=== PATIENT | female | born 1945 | race Caucasian/White ===

== ENCOUNTER → 2018-07-07 11:53 | Outpatient (CLI) | payer MEDICARE ==
[2012-08-04 09:32] VITALS: BMI 43.5
[2018-07-07 12:50] LABS: BASOPHILS 0.2 % (0-2); EOSINOPHILS 1.7 % (0-7); HEMOGLOBIN 11.3 g/dL (12-16); IMMATURE GRANULOCYTES 0.2 % (0-5); LYMPHOCYTES 22.9 % (15-50); MCH 32.3 pg (26.0-34.0); MCHC 32.3 g/dL (31.0-37.0); MEAN PLATELET VOLUME 10.6 fL (7.4-10.4); MONOCYTES 8.1 % (2-11); NEUTROPHILS 66.9 % (40-80); PLATELET COUNT 225 10x3/uL (130-400); RDW 12.5 % (11.5-14.5); WBC 4.1 10x3/uL (4.8-10.8)
[2018-07-07 12:57] LABS: ANION GAP 12.9 mmol/L (8-16); CALCIUM 8.7 mg/dL (8.5-10.1); CARBON DIOXIDE 28.3 mmol/L (21.0-32.0); MAGNESIUM - SERUM 1.9 mg/dL (1.8-2.4); POTASSIUM - SERUM 4.2 mmol/L (3.5-5.1)
[2018-07-07 13:47] LABS: APPEARANCE HAZY (CLEAR); BILIRUBIN NEGATIVE (NEGATIVE); COLOR YELLOW (YELLOW); GLUCOSE NEGATIVE (NEGATIVE); KETONE NEGATIVE (NEGATIVE); NITRITE NEGATIVE (NEGATIVE); PROTEIN NEGATIVE (NEGATIVE); SPECIFIC GRAVITY 1.015 (1.005-1.020); UROBILINOGEN NORMAL (NORMAL)
[2018-07-07 13:52] LABS: CREATININE - URINE 72.7 mg/dL (30-125); PRO/CRE RATIO URINE 0.1 mg/g; PROTEIN - URINE 6.9 mg/dL (0.0-11.9)
[2018-07-07 13:55] LABS: BACTERIA MODERATE /hpf (NONE SEEN); EPITHELIAL CELLS 0-5 /hpf (0-5); RED CELLS - URINE RARE /hpf (0-5); WHITE CELLS - URINE 0-5 /hpf (0-5)
== END | disposition home or self-care (01) ==
LOC: D.US 07-04 14:00
PROVIDERS: Family Medicine
DX: N18.4 Chronic kidney disease, stage 4 (severe) (principal)

== ENCOUNTER 2018-10-24 20:17 | Inpatient (IN) | payer MEDICARE ==
[~2018-10-24] VITALS: Ht 170.2 cm; Wt 115.7 kg
[2018-10-24] MEDS ORDERED: TRAZODONE HCL150 MG (20:31)
[2018-10-24] MEDS ORDERED: LYRICA50 MG (20:31)
[2018-10-24 21:55] LABS: ALBUMIN 2.7 g/dL (3.4-5.0); ALKALINE PHOSPHATASE 41 U/L (46-116); ALT (SGPT) 22 U/L (10-68); CALC OSMOLALITY 285 mosm/kg (275-300); CALCIUM 7.9 mg/dL (8.5-10.1); CHLORIDE - SERUM 107 mmol/L (98-107); CREATININE - SERUM 1.1 mg/dL (0.6-1.3); GLUCOSE 119 mg/dL (74-106); POTASSIUM - SERUM 4.2 mmol/L (3.5-5.1); PROTEIN - SERUM 6.1 g/dL (6.4-8.2); SODIUM 139 mmol/L (136-145); UREA NITROGEN 32 mg/dL (7-18); eGFR NON AFRICAN AMERICAN 52 mL/min (90-120)
[2018-10-24 21:56] LABS: BASOPHILS 0.2 % (0-2); EOSINOPHILS 2.8 % (0-7); HEMATOCRIT 25.4 % (36.0-48.0); IMMATURE GRANULOCYTES 0.2 % (0-5); LYMPHOCYTES 29.8 % (15-50); MCH 32.8 pg (26.0-34.0); MCHC 31.5 g/dL (31.0-37.0); MCV 104.1 fL (80.0-100.0); MEAN PLATELET VOLUME 11.3 fL (7.4-10.4); MONOCYTES 12.1 % (2-11); NEUTROPHILS 54.9 % (40-80); PLATELET COUNT 205 10x3/uL (130-400); RBC 2.44 10x6/uL (4.00-5.40); RDW 13.1 % (11.5-14.5); WBC 5.1 10x3/uL (4.8-10.8)
[2018-10-24 21:59] LABS: AMYLASE - SERUM 16 U/L (25-115); LIPASE 51 U/L (73-393); TROPONIN-I < 0.017 ng/mL (0.000-0.060)
[2018-10-24 22:22] VITALS: BP 105/45
[2018-10-24 23:24] VITALS: BP 99/46
[2018-10-24 23:42] LABS: % SATURATION 10 % (15-55); IRON 33 ug/dl (35-150); TOTAL IRON BIND CAPACITY 322 ug/dl (260-445); UNSAT IRON BIND CAPACITY 289 ug/dl (150-375)
[2018-10-24 23:43] LABS: APPEARANCE CLEAR (CLEAR); BILIRUBIN NEGATIVE (NEGATIVE); COLOR YELLOW (YELLOW); GLUCOSE NEGATIVE (NEGATIVE); KETONE NEGATIVE (NEGATIVE); NITRITE NEGATIVE (NEGATIVE); PROTEIN NEGATIVE (NEGATIVE); SPECIFIC GRAVITY 1.015 (1.005-1.020); UROBILINOGEN NORMAL (NORMAL)
[2018-10-25] VITALS (30 sets, daily range): BP systolic 92–119; BP diastolic 52–89; Ht 170.2 cm; Wt 115.7 kg
[2018-10-25] MEDS ORDERED: PRAVACHOL20 MG (00:40)
[2018-10-25] MEDS ORDERED: LIPOFEN50 MG (00:41)
[2018-10-25] MEDS ORDERED: TENORMIN25 MG (00:41)
[2018-10-25] MEDS ORDERED: CYMBALTA20 MG (00:41)
[2018-10-25] MEDS ORDERED: [UNRECOGNIZED DRUG - OTHER] (00:41)
[2018-10-25] MEDS ORDERED: BENICAR5 MG (00:41)
[2018-10-25 05:50] LABS: BASOPHILS 0 % (0-2); EOSINOPHILS 3.2 % (0-7); HEMATOCRIT 23.3 % (36.0-48.0); MCH 31.1 pg (26.0-34.0); MCHC 31.8 g/dL (31.0-37.0); MEAN PLATELET VOLUME 10.9 fL (7.4-10.4); MONOCYTES 14.2 % (2-11); NEUTROPHILS 46.6 % (40-80); RBC 2.38 10x6/uL (4.00-5.40); RDW 17.7 % (11.5-14.5)
[2018-10-25 06:21] LABS: WBC 2.5 10x3/uL (4.8-10.8)
[2018-10-25 06:22] LABS: HEMOGLOBIN 7.4 g/dL (12-16); MCV 97.9 fL (80.0-100.0); PLATELET COUNT 133 10x3/uL (130-400)
[2018-10-25 06:28] LABS: CALCIUM 7.1 mg/dL (8.5-10.1); CARBON DIOXIDE 22.3 mmol/L (21.0-32.0); CREATININE - SERUM 0.9 mg/dL (0.6-1.3)
[2018-10-25 07:09] LABS: ANION GAP 11.4 mmol/L (8-16); POTASSIUM - SERUM 3.7 mmol/L (3.5-5.1)
[2018-10-25 17:50] LABS: HEMATOCRIT 30.2 % (36.0-48.0); HEMOGLOBIN 9.7 g/dL (12-16)
[2018-10-25 21:07] LABS: HEMATOCRIT 29.7 % (36.0-48.0); HEMOGLOBIN 9.7 g/dL (12-16)
[2018-10-26] VITALS (19 sets, daily range): BP systolic 103–130; BP diastolic 58–75
[2018-10-26 04:58] LABS: HEMATOCRIT 29.9 % (36.0-48.0); HEMOGLOBIN 9.4 g/dL (12-16); MCH 28.4 pg (26.0-34.0); MCHC 31.4 g/dL (31.0-37.0); MEAN PLATELET VOLUME 10.7 fL (7.4-10.4); PLATELET COUNT 125 10x3/uL (130-400); RDW 23.8 % (11.5-14.5); WBC 2.6 10x3/uL (4.8-10.8)
[2018-10-26 05:04] LABS: CALC OSMOLALITY 280 mosm/kg (275-300); CARBON DIOXIDE 23.6 mmol/L (21.0-32.0); CHLORIDE - SERUM 110 mmol/L (98-107); CREATININE - SERUM 0.7 mg/dL (0.6-1.3); GLUCOSE 85 mg/dL (74-106); POTASSIUM - SERUM 3.5 mmol/L (3.5-5.1); SODIUM 141 mmol/L (136-145); eGFR NON AFRICAN AMERICAN 87 mL/min (90-120)
[2018-10-26 05:23] LABS: MCV 90.3 fL (80.0-100.0); RBC 3.31 10x6/uL (4.00-5.40)
[2018-10-26 05:26] LABS: UREA NITROGEN 16 mg/dL (7-18)
[2018-10-26 08:06] LABS: EOSINOPHILS 2 % (0-7); LYMPHOCYTES 30 % (15-50); MONOCYTES 14 % (2-11); NEUTROPHILS 49 % (40-80); PLATELET ESTIMATE NORMAL
[2018-10-26 09:17] LABS: FOLATE (FOLIC ACID) - SERUM 9.2 ng/mL (>3.0)
[2018-10-26 10:11] LABS: HEMATOCRIT 31.4 % (36.0-48.0)
--- NOTE | 2018-10-26 16:24 | MORECARE ---
CASE MANAGEMENT DISCHARGE SUMMARY PATIENT: MEEK DEVLIN UNIT: [id number] ADM DATE: 10/24/18 AGE: 73 : 47 SEX: F ROOM/BED: D.2303 AUTHOR: ZACHERY PINEDA PHYSICIAN: REFERRING PHYSICIAN: THALIA SILVA MD DATE OF SERVICE: 10/26/18 Discharge Plan Patient Name: MEEK DEVLIN [facility] : 1945 Planned Disposition: Home Anticipated Discharge Date: Discharge Date: Expected LOS: Initial Reviewer: [email or web address] Initial Review Date: 10/25/2018 Generated: 10/26/18 5:23 pm DCPIA - Discharge Planning Initial Assessment Updated by [email or web address]: Debbie Shaffer on 10/26/18 4:23 pm * Is the patient Alert and Oriented? Yes * How many steps to enter\exit or inside your home? * PCP [facility] * [facility] * Preadmission Environment Home with Family * ADLs Partial Dependent * Other Equipment W/C, BSC, HOSPITAL BED, HOME 02 @ HS * List name and contact numbers for known caregivers / representatives who currently or will assist patient after discharge: GARY COLON - DAUGHTER- [phone] * Verbal permission to speak to the caregivers and representatives has been obtained from the patient. Yes * Community resources currently utilized None * Additional services required to return to the preadmission environment? No * Can the patient safely return to the preadmission environment? Yes * Has this patient been hospitalized within the prior 30 days at any hospital? No Patient Name: MEEK DEVLIN Page 88553 at 1624 All edits/amendments must be made on the electronic document DICTATION DATE: 10/26/181622 METAL NUMERICAL CONTROL PROGRAMMER: JAVAN 10/26/181622 RPT#: [id number] DC DATE: STATUS: ADM IN [facility] [address] [place] [address] END OF REPORT
--- NOTE | 2018-10-26 16:31 | MORECARE ---
CASE MANAGEMENT DISCHARGE SUMMARY PATIENT: MEEK DEVLIN UNIT: [id number] ADM DATE: 10/24/18 AGE: 73 : 47 SEX: F ROOM/BED: D.2303 AUTHOR: EDWIN,DOC PHYSICIAN: REFERRING PHYSICIAN: THALIA SILVA MD DATE OF SERVICE: 10/26/18 Discharge Plan Patient Name: MEEK DEVLIN Facility: [facility]:[place] : 1945 Planned Disposition: Home Anticipated Discharge Date: Discharge Date: Expected LOS: Initial Reviewer: [email or web address] Initial Review Date: 10/25/2018 Generated: 10/26/18 5:31 pm Comments DCP- Discharge Planning Updated by [email or web address]: Debbie Shaffer on 10/26/18 3:[address] Patient Name: MEEK DEVLIN Admission Status: ER Accout number: [id number] Admission Date: 10-24-2018 : 1945 Admission Diagnosis:GASTROINTESTINAL HEMORRHAGE, UNSPECIFIED Attending: THALIA SILVA Current LOS: 2 Anticipated DC Date: Planned Disposition: Home Primary Insurance: MEDICARE A & B Discharge Planning Comments: CM met with patient at bedside after explaining CM role and obtaining verbal consent. Patient lives at home with her daughter and plans to return there upon discharge. Patient feels this would be a safe discharge. CM discussed availability / needs of home health and medical equipment. Patient states she has a wheelchair, bedside commode, hospital bed and home 02 that she wears at night. Patient denies having any portable 02. Patient denies any home health services currently. Patient denies any discharge needs at this time. Patient states she will have her daughter drive her home upon discharge. CM will continue to follow and assist as needed with discharge planning / needs. Flat Folding Machine Operator: Debbie Shaffer DCPIA - Discharge Planning Initial Assessment Updated by [email or web address]: Debbie Shaffer on 10/26/18 4:23 pm * Is the patient Alert and Oriented? Yes * How many steps to enter\exit or inside your home? * PCP [facility] * [facility] * Preadmission Environment Home with Family * ADLs Partial Dependent * Other Equipment W/C, BSC, HOSPITAL BED, HOME 02 @ HS * List name and contact numbers for known caregivers / representatives who currently or will assist patient after discharge: GARY COLON - DAUGHTER- [phone] * Verbal permission to speak to the caregivers and representatives has been obtained from the patient. Yes * Community resources currently utilized None * Additional services required to return to the preadmission environment? No * Can the patient safely return to the preadmission environment? Yes * Has this patient been hospitalized within the prior 30 days at any hospital? No Last DP export: 10/26/18 3:23 p Patient Name: MEEK DEVLIN Page 13967 at 1631 All edits/amendments must be made on the electronic document DICTATION DATE: 10/26/181630 BATCH AND FURNACE OPERATOR: JAVAN 10/26/181630 RPT#: [id number] DC DATE: STATUS: ADM IN [facility] [address] [place] [address] END OF REPORT
[2018-10-26] MEDS ORDERED: ACETAMINOPHEN500 M1 PO (17:26)
[2018-10-27] VITALS: BP 129/64
[2018-10-27 04:00] VITALS: BP 128/70
[2018-10-27 04:55] LABS: CALC OSMOLALITY 283 mosm/kg (275-300); CHLORIDE - SERUM 112 mmol/L (98-107); CREATININE - SERUM 0.8 mg/dL (0.6-1.3); GLUCOSE 100 mg/dL (74-106); SODIUM 143 mmol/L (136-145); eGFR NON AFRICAN AMERICAN 75 mL/min (90-120)
[2018-10-27 05:11] LABS: UREA NITROGEN 11 mg/dL (7-18)
[2018-10-27 07:13] LABS: BASOPHILS 0 % (0-2); EOSINOPHILS 1.8 % (0-7); HEMATOCRIT 31.2 % (36.0-48.0); HEMOGLOBIN 9.9 g/dL (12-16); LYMPHOCYTES 28.9 % (15-50); MCH 28.8 pg (26.0-34.0); MCHC 31.7 g/dL (31.0-37.0); MCV 90.7 fL (80.0-100.0); MEAN PLATELET VOLUME 10.7 fL (7.4-10.4); MONOCYTES 11.1 % (2-11); NEUTROPHILS 58.2 % (40-80); PLATELET COUNT 135 10x3/uL (130-400); RBC 3.44 10x6/uL (4.00-5.40); RDW 22.6 % (11.5-14.5); WBC 2.8 10x3/uL (4.8-10.8)
[2018-10-27 08:36] VITALS: BP 134/94
[2018-10-27] MEDS ORDERED: PROTONIX40 MG PO (08:59)
[2018-10-27] MEDS ORDERED: CARAFATE1 G/10 ML PO (09:00)
[2018-10-27] MEDS ORDERED: ZITHROMAX500 MG PO (09:06)
--- NOTE | 2018-10-27 11:12 | MORECARE ---
CASE MANAGEMENT DISCHARGE SUMMARY PATIENT: MEEK DEVLIN UNIT: [id number] ADM DATE: 10/24/18 AGE: 73 : 47 SEX: F ROOM/BED: D.2214 AUTHOR: ZACHERY PINEDA PHYSICIAN: REFERRING PHYSICIAN: THALIA SILVA MD DATE OF SERVICE: 10/27/18 Discharge Plan Patient Name: MEEK DEVLIN Facility: [facility]:[place] : 1945 Planned Disposition: Home Anticipated Discharge Date: Discharge Date: Expected LOS: Initial Reviewer: [email or web address] Initial Review Date: 10/25/2018 Generated: 10/27/18 12:12 pm Comments DCP- Discharge Planning Updated by [email or web address]: Galilea Roe on 10/27/18 10:[address] Patient Name: MEEK DEVLIN Encounter No: [id number] : 1945 Primary Insurance: MEDICARE A & B Anticipated DC Date: Planned Disposition: Home External Planned Provider: : DCP follow-up note: Patient and family in agreement with discharge plan. No changes to plan. IMM served and explained. Case management will follow and assist as needed. Galilea Roe DCP- Discharge Planning Updated by [email or web address]: Debbie Shaffer on 10/26/18 3:[address] Patient Name: MEEK DEVLIN Admission Status: ER Accout number: [id number] Admission Date: 10-24-2018 : 1945 Admission Diagnosis:GASTROINTESTINAL HEMORRHAGE, UNSPECIFIED Attending: THALIA SILVA Current LOS: 2 Anticipated DC Date: Planned Disposition: Home Primary Insurance: MEDICARE A & B Discharge Planning Comments: CM met with patient at bedside after explaining CM role and obtaining verbal consent. Patient lives at home with her daughter and plans to return there upon discharge. Patient feels this would be a safe discharge. CM discussed availability / needs of home health and medical equipment. Patient states she has a wheelchair, bedside commode, hospital bed and home 02 that she wears at night. Patient denies having any portable 02. Patient denies any home health services currently. Patient denies any discharge needs at this time. Patient states she will have her daughter drive her home upon discharge. CM will continue to follow and assist as needed with discharge planning / needs. Systems Eng: Debbie Shaffer DCPIA - Discharge Planning Initial Assessment Updated by [email or web address]: Debbie Shaffer on 10/26/18 4:23 pm * Is the patient Alert and Oriented? Yes * How many steps to enter\exit or inside your home? * PCP [facility] * [facility] * Preadmission Environment Home with Family * ADLs Partial Dependent * Other Equipment W/C, BSC, HOSPITAL BED, HOME 02 @ HS * List name and contact numbers for known caregivers / representatives who currently or will assist patient after discharge: GARY COLON - [place]- [phone] * Verbal permission to speak to the caregivers and representatives has been obtained from the patient. Yes * Community resources currently utilized None * Additional services required to return to the preadmission environment? No * Can the patient safely return to the preadmission environment? Yes * Has this patient been hospitalized within the prior 30 days at any hospital? No Coverage Notice Reviewer: [email or web address] Julio Roe Notice Issued Date-Time: 10/27/2018 11:00 Notice Type: IM Discharge Notice Notice Delivered To: Patient Relationship to Patient: Learning And Development Specialist Name: Delivery Method: HAND - Hand Delivered Debbie Days: Prior Verbal Notification: Recipient Understood Notice: Yes Recipient Signature: Yes Med Rec Note Co-signed by Attending: Coverage Notice Comment: Last DP export: 10/26/18 3:31 p Patient Name: MEEK DEVLIN Page 26737 at 1112 All edits/amendments must be made on the electronic document DICTATION DATE: 10/27/18 111 PREVENTATIVE MAINTENANCE TECHNICIAN: JAVAN 10/27/18 1112 RPT#: [id number] DC DATE: STATUS: ADM IN [facility] [address] [place] [address] END OF REPORT
[2018-10-27 11:30] LABS: APPEARANCE CLEAR (CLEAR); BACTERIA FEW /hpf (NONE SEEN); BILIRUBIN NEGATIVE (NEGATIVE); COLOR YELLOW (YELLOW); EPITHELIAL CELLS OCC /hpf (0-5); GLUCOSE NEGATIVE (NEGATIVE); KETONE NEGATIVE (NEGATIVE); NITRITE NEGATIVE (NEGATIVE); PROTEIN NEGATIVE (NEGATIVE); SPECIFIC GRAVITY 1.025 (1.005-1.020)
[2018-10-27 12:07] VITALS: BP 131/78
--- NOTE | 2018-11-01 15:56 | MORECARE ---
CASE MANAGEMENT DISCHARGE SUMMARY PATIENT: MEEK DEVLIN UNIT: [id number] ADM DATE: 10/24/18 AGE: 73 : [birth year] SEX: F ROOM/BED: D.2214 AUTHOR: ZACHERY PINEDA PHYSICIAN: REFERRING PHYSICIAN: THALIA SILVA MD DATE OF SERVICE: 11/01/18 Discharge Plan Patient Name: MEEK DEVLIN Facility: [facility]:[place] : 1945 Planned Disposition: Home Anticipated Discharge Date: Discharge Date: 10/27/2018 Expected LOS: Initial Reviewer: [email or web address] Initial Review Date: 10/25/2018 Generated: 11/01/18 4:55 pm Comments DCP- Discharge Planning Updated by [email or web address]: Galilea Roe on 10/27/18 10:[address] Patient Name: MEEK DEVLIN Encounter No: [id number] : 1945 Primary Insurance: MEDICARE A & B Anticipated DC Date: Planned Disposition: Home External Planned Provider: : DCP follow-up note: Patient and family in agreement with discharge plan. No changes to plan. IMM served and explained. Case management will follow and assist as needed. Galilea Roe DCP- Discharge Planning Updated by [email or web address]: Debbie Shaffer on 10/26/18 3:[address] Patient Name: MEEK DEVLIN Admission Status: ER Accout number: [id number] Admission Date: 10-24-2018 : 1945 Admission Diagnosis:GASTROINTESTINAL HEMORRHAGE, UNSPECIFIED Attending: THALIA SILVA Current LOS: 2 Anticipated DC Date: Planned Disposition: Home Primary Insurance: MEDICARE A & B Discharge Planning Comments: CM met with patient at bedside after explaining CM role and obtaining verbal consent. Patient lives at home with her daughter and plans to return there upon discharge. Patient feels this would be a safe discharge. CM discussed availability / needs of home health and medical equipment. Patient states she has a wheelchair, bedside commode, hospital bed and home 02 that she wears at night. Patient denies having any portable 02. Patient denies any home health services currently. Patient denies any discharge needs at this time. Patient states she will have her daughter drive her home upon discharge. CM will continue to follow and assist as needed with discharge planning / needs. Drain Tile Machine Operator: Debbie Cornejor DCPIA - Discharge Planning Initial Assessment Updated by [email or web address]: Debbie Shaffer on 10/26/18 4:23 pm * Is the patient Alert and Oriented? Yes * How many steps to enter\exit or inside your home? * PCP [facility] * [facility] * Preadmission Environment Home with Family * ADLs Partial Dependent * Other Equipment W/C, BSC, HOSPITAL BED, HOME 02 @ HS * List name and contact numbers for known caregivers / representatives who currently or will assist patient after discharge: GARY COLON - [place]- [phone] * Verbal permission to speak to the caregivers and representatives has been obtained from the patient. Yes * Community resources currently utilized None * Additional services required to return to the preadmission environment? No * Can the patient safely return to the preadmission environment? Yes * Has this patient been hospitalized within the prior 30 days at any hospital? No Coverage Notice Reviewer: [email or web address] Julio Roe Notice Issued Date-Time: 10/27/2018 11:00 Notice Type: IM Discharge Notice Notice Delivered To: Patient Relationship to Patient: Superintendent [employer] Name: Delivery Method: HAND - Hand Delivered Debbie Days: Prior Verbal Notification: Recipient Understood Notice: Yes Recipient Signature: Yes Med Rec Note Co-signed by Attending: Coverage Notice Comment: Last DP export: 10/27/18 10:12 a Patient Name: MEEK DEVLIN Page 10312 at 1556 All edits/amendments must be made on the electronic document DICTATION DATE: 11/01/18 1555 SHUTTLE CAR OPERATOR: JAVAN 11/01/18 1554 RPT#: [id number] DC DATE:10/27/18 STATUS: DIS IN [facility] [address] [place] [address] END OF REPORT
== END 2018-10-27 12:24 | disposition home or self-care (01) | DRG 378 ==
LOC: D.ER 20:17 → D.ICU 23:05 → D.EDHOLD 23:05 → D.ICU 10-25 01:28 → D.MS 10-26 17:42
PROVIDERS: Family Medicine; Internal Medicine Gastroenterology; ADMIT Internal Medicine Nephrology; ATTEND Internal Medicine Nephrology
PROC: 0DB68ZX Excision of Stomach, Via Natural or Artificial Opening Endoscopic, Diagnostic (ICD-10-PCS; principal; 2018-10-25 14:55)
DX: K25.4 Chronic or unspecified gastric ulcer with hemorrhage (principal); D62 Acute posthemorrhagic anemia; N17.9 Acute kidney failure, unspecified; K44.9 Diaphragmatic hernia without obstruction or gangrene; R55 Syncope and collapse; D50.9 Iron deficiency anemia, unspecified; E66.9 Obesity, unspecified; R53.81 Other malaise; I10 Essential (primary) hypertension; G47.33 Obstructive sleep apnea (adult) (pediatric); J44.9 Chronic obstructive pulmonary disease, unspecified; E03.9 Hypothyroidism, unspecified

== ENCOUNTER → 2018-11-24 09:21 | Outpatient (CLI) | payer MEDICARE ==
[2018-10-25 09:45] VITALS: BMI 44.1
[~2018-11-24 09:21] MED LIST: ACETAMINOPHEN500 M1 PO; BENICAR5 MG; CARAFATE1 G/10 ML PO; CYMBALTA20 MG; LIPOFEN50 MG; LYRICA50 MG; PRAVACHOL20 MG; PROTONIX40 MG PO; TENORMIN25 MG; TRAZODONE HCL150 MG; ZITHROMAX500 MG PO; [UNRECOGNIZED DRUG - OTHER]
[2018-11-24 10:17] LABS: BASOPHILS 0.3 % (0-2); EOSINOPHILS 2.9 % (0-7); HEMATOCRIT 36.1 % (36.0-48.0); HEMOGLOBIN 11.7 g/dL (12-16); LYMPHOCYTES 31.9 % (15-50); MCH 30.6 pg (26.0-34.0); MCHC 32.4 g/dL (31.0-37.0); MCV 94.5 fL (80.0-100.0); MEAN PLATELET VOLUME 11.4 fL (7.4-10.4); MONOCYTES 8.8 % (2-11); NEUTROPHILS 56.1 % (40-80); RBC 3.82 10x6/uL (4.00-5.40); RDW 17.1 % (11.5-14.5); WBC 3.4 10x3/uL (4.8-10.8)
[2018-11-24 10:21] LABS: PLATELET COUNT 168 10x3/uL (130-400)
[2018-11-24 10:22] LABS: ANION GAP 8.3 mmol/L (8-16); CALCIUM 8.9 mg/dL (8.5-10.1); CARBON DIOXIDE 30.7 mmol/L (21.0-32.0)
== END | disposition home or self-care (01) ==
LOC: D.LAB 09:21
PROVIDERS: ATTEND Family Medicine
DX: D64.9 Anemia, unspecified (principal); N18.4 Chronic kidney disease, stage 4 (severe); K27.4 Chronic or unspecified peptic ulcer, site unspecified, with hemorrhage